=== PATIENT | male | born 1940 | race Two or more races ===

== ENCOUNTER 2020-08-22 18:17 | Emergency (ER) | payer MEDICARE, OTHER ==
[~2020-08-22] VITALS: Ht 154.9 cm; Wt 49.4 kg
[2020-08-22] MEDS ORDERED: SODIUM CHLORIDE FLUSH 10ML SYR IVF ONE (18:30)
[2020-08-22] MEDS ORDERED: PLEASE ENTER ALLERGIES MC SCH (18:30)
[2020-08-22] MEDS ORDERED: PLEASE ENTER HEIGHT AND WEIGHT MC SCH (18:30)
[2020-08-22] MEDS ORDERED: methylPREDNISolone SOD SUCC 125 MG/2 ML IVPush ONE (18:30)
[2020-08-22] MEDS ORDERED: ALBUTEROL/IPRATROPIUM 2.5MG/0.5MG, 3 ML ONE ×4 (18:35→18:45)
[2020-08-22] MEDS ORDERED: methylPREDNISolone SOD SUCC 125 MG/2 ML ONE (18:39)
[2020-08-22] MEDS ORDERED: BUDESONIDE 0.5 MG/2 ML INHA ONE (18:44)
[2020-08-22] MEDS ORDERED: RESCUE INHALER INH (18:54)
[2020-08-22] MEDS ORDERED: WARF1TAB74 PO (18:54)
[2020-08-22] MEDS ORDERED: PHEN50TA4 PO (18:54)
[2020-08-22] MEDS ORDERED: ALBUTEROL SULFATE 2.5 MG/3 ML NPPB ONE (19:00)
[2020-08-22 19:03] LABS: MEAN CORPUSCULAR HEMOGLOBIN 28.1 pg (27.5-34.5); MEAN CORPUSCULAR HGB CONC 32.6 g/dL (33.2-36.2); MEAN PLATELET VOLUME 8.6 fL (7.4-10.4); PLATELET COUNT 376 x10^3/uL (130-400); RED BLOOD COUNT 3.63 x10^6/uL (4.38-5.82); RED CELL DISTRIBUTION WIDTH 16.8 % (9.4-14.8)
[2020-08-22 19:16] LABS: ALANINE AMINOTRANSFERASE 10 U/L (12-78); ALBUMIN 2.9 g/dL (3.4-5.0); ANION GAP 10 mmol/L (5-15); CHLORIDE 107 mmol/L (98-107); CREATININE 1.91 mg/dL (0.7-1.3)
[2020-08-22 19:18] LABS: INTERNATIONAL NORMALIZED RATIO 3.39 (0.93-1.1); PROTHROMBIN TIME 35.4 Seconds (9.6-11.5)
--- NOTE | 2020-08-22 19:19 | NUR ---
RECEIVED REPORT FROM RN, PT ON CPAP AND RT AT BEDSIDE, AND PT ACTIVELY RECEIVING NEB TREATMENTS VIA CPAP MASK. PT HAS 20 G PIV TO LEFT BICEP FLUSHES EASILY. PT HAS A URINE LEG BAG FOR IN PLACE CATHETER FROM HOME. PT HAS HISTORY OF SHATTERED SHOULDERS WITH DECREASED MOVEMENT. PT RECEIVED STEROIDS AND MEDS ORDERED, AND STATES HE FEELS BETTER. LUNG SOUNDS HAVE GONE FROM WHEEZING INSPIRATORY/EXPIRATORY ON ARRIVAL TO COARSE BREAT SOUNDS WITH MORE AIR MOVEMENT. ON CR MONITOR, SIDERAILS UP X2 AND CALL LIGHT WITHIN REACH, AND PILLOW PLACED ON HIS RIGHT SIDE TO PROP HIM UP. MD TO BEDSIDE AND FURTHER ORDERS RECEIVED.
[2020-08-22 19:20] LABS: ALKALINE PHOSPHATASE 190 U/L (45-117); BILIRUBIN,TOTAL 0.3 mg/dL (0.2-1.0); TOTAL PROTEIN 6.8 g/dL (6.4-8.2); TROPONIN I < 0.015 ng/mL (0.000-0.045)
[2020-08-22] MEDS ORDERED: MAGNESIUM SULFATE/D5W 100 ML ONE (19:23)
[2020-08-22 19:24] LABS: BAND#(MANUAL) 1.21 x10^3/uL; BANDS%(MANUAL) 5 % (0-7); EOS#(MANUAL) 0.24 x10^3/uL (0.0-0.4); EOS% (MANUAL) 1 % (1-7); LYMPH#(MANUAL) 0.48 x10^3/uL (1-3.4); LYMPHS% (MANUAL) 2 % (22-44); MONOS#(MANUAL) 0.97 x10^3/uL (0.3-2.7); MONOS% (MANUAL) 4 % (2-9); SEGS% (MANUAL) 88 % (42-75)
[2020-08-22 19:25] LABS: <PLATELET ESTIMATE> ADEQUATE; ANISOCYTOSIS 1+
[2020-08-22] MEDS ORDERED: MAGNESIUM SULFATE/D5W 100 ML IVPB ONE (19:30)
[2020-08-22] MEDS ORDERED: SODIUM CHLORIDE 0.9%, 500ML IVBOLUS ONE (19:30)
--- NOTE | 2020-08-22 19:33 | NUR ---
PTS FAMILY CALLED FOR AN UPDATE AND PT GAVE PERMISSION TO UPDATE FAMILY. PTS SON AND WERE UPDATED TO CURRENT STATUS, PT OFF OF CPAP AT THIS TIME AND PLACED ON OPTIFLOW NASAL CANNULA. SEE V/S. PT ADVISED THAT HE NEEDS TO BE ADMITTED, AND PT SAYS HE DOES NOT WANT TO BE ADMITTED AND REFUSES. SAYING HE WOULD RATHER BE DISCHARGED AND IF HE LEAVES. PT ADVISED IT IS IN THE BEST INTEREST TO BE SEEN AND TO STAY IN THE HOSPITAL FOR THE NIGHT TO GET TREATMENT. ADVISED OF PTS WISHES.
--- NOTE | 2020-08-22 19:39 | NUR ---
-PTS FAMILY PHONE NUMBER. VINOD . (SON): [phone]
--- NOTE | 2020-08-22 19:47 | NUR ---
MD ALERTED TO PT REFUSING ANY ADMISSION. PTS FAMILY HAS BEEN MADE AWARE AND UNDERSTAND. PER THE FAMILY, THE PT IS AT THE AGE WHERE HE DOESN'T CARE ANYMORE, OR "IS GOOD WITH IT, IF IT HAPPENS" BECAUSE OF HIS CANCER, AND AILMENTS. PT RECEIVING MEDS AND NEB TREATMENTS PRIOR TO ANY DISCHARGE. PT RECEIVING MAG SULFATE IV INFUSION OVER ONE HOUR. PT HAS BEEN DOWNGRADED TO AN OPTI FLOW FROM CPAP. MD AWARE. PT WITH EASY RESPIRATIONS NOW, AND NO USE OF ACCESORY MUSCLES, PT HAVING CONVERSATION AND TALKING WITH STAFF NOW, AND ABLE TO HOLD FULL SENTENCES.
[2020-08-22] MEDS ORDERED: CEFTRIAXONE PMX 1GM/50ML 50 ML ONE (19:52)
[2020-08-22] MEDS ORDERED: DOXYCYCLINE 100MG TABLET ONE (19:52)
[2020-08-22] MEDS ORDERED: CEFTRIAXONE PMX 1GM/50ML 50 ML IV ONE (20:00)
[2020-08-22] MEDS ORDERED: DOXYCYCLINE 100MG TABLET PO ONE (20:00)
--- NOTE | 2020-08-22 20:03 | NUR ---
MD SPOKE TO PTS FAMILY AND THEY HAVE COORDINATED THEM PICKING PT UP AFTER WE FINISH GIVING IV MEDS AND PT IS IN AN ADEQUATE STATE OF RESPIRATORY.
--- NOTE | 2020-08-22 21:19 | NUR ---
PT AWAKE AND ALERT, WITH EASY RESPIRATIONS AND OPEN AIRWAY. PT WANTS TO BE D/C'D AND PER THE SON, PT IS A DNR. PIV TO LEFT BICEP D/C'D AND CATH INTACT. PT TOLERATED WELL. PTS URINE BAG EMPTIED, PT RECEIVED HIS ANTIBIOTICS AND F/U AND D/C INSTRUCTIONS GIVEN TO PT, AND HE V/U. SEE V/S.
[2020-08-22 21:21] VITALS: BP 132/86
== END 2020-08-22 21:23 | disposition home or self-care (01) ==
LOC: ED 20:56
DX: J96.01 Acute respiratory failure with hypoxia (principal); C80.1 Malignant (primary) neoplasm, unspecified; N17.9 Acute kidney failure, unspecified; R65.20 Severe sepsis without septic shock; J44.9 Chronic obstructive pulmonary disease, unspecified; R07.89 Other chest pain; I50.9 Heart failure, unspecified; R00.0 Tachycardia, unspecified; Z85.118 Personal history of other malignant neoplasm of bronchus and lung
CPT/HCPCS: 36600; 71045; 80053; 82803; 83605; 83735; 83880; 84484; 85025; 85610; 87040; 93005; 94640; 94660; 96365; 96368; 96375; 99291; J0696; J2930; J7040